=== PATIENT | female | born 1970 | race Caucasian/White ===

== ENCOUNTER 2020-05-23 10:47 | Emergency (ER) | payer MEDICARE, OTHER ==
[~2020-05-23 10:47] MED LIST: BENTYL 20MG TAB20 MG PO; BRIVIACT50 MG PO; BUSPAR 10MG10 MG PO; CYCLOBENZAPRINE10 MG PO; FAMOTIDINE40 MG PO; K-DUR TAB 20 M20 MEQ PO; KEFLEX CAP 500500 MG PO; MACROBID 100 M100 MG PO; PROMETHAZINE12.5 M1 PO; VENLAFAXINE HC225 MG PO; ZOFRAN ODT 4 MG4 MG PO
[2020-05-23 12:19] LABS: HEMOGLOBIN 12.5 gm/dl (12.3-15.3); RED BLOOD COUNT 4.49 M/UL (4.00-5.10); WHITE BLOOD COUNT 11.7 K/UL (4.5-11.0)
[2020-05-23 12:40] LABS: BUN/CREATININE RATIO 18 (0-10)
[2020-05-23] MEDS ORDERED: BENTYL 20MG TAB20 MG PO (17:05)
[2020-05-23] MEDS ORDERED: PROTONIX40 MG PO (17:05)
[2020-05-23] MEDS ORDERED: ZOFRAN ODT 4 MG4 MG PO (17:05)
[2020-05-23] MEDS ORDERED: XYLOCAINE VISC100 ML PO (17:05)
== END 2020-05-23 17:19 | disposition home or self-care (01) ==
LOC: ER1 10:47
PROVIDERS: Emergency Medicine
DX: R10.13 Epigastric pain (principal); R11.0 Nausea
CPT/HCPCS: 80053; 81001; 83690; 84703; 85025; 87081; 87880; 96365; 96375; 99284; J2405; J7030; Q9967

== ENCOUNTER 2020-07-17 10:02 | Emergency (ER) | payer MEDICARE ==
[~2020-07-17 10:02] MED LIST changes: +PROTONIX40 MG PO; +XYLOCAINE VISC100 ML PO
[2020-07-17 10:58] LABS: HEMOGLOBIN 12.4 gm/dl (12.3-15.3); RED BLOOD COUNT 4.38 M/UL (4.00-5.10); WHITE BLOOD COUNT 11.2 K/UL (4.5-11.0)
[2020-07-17 11:24] LABS: BUN/CREATININE RATIO 16 (0-10)
== END 2020-07-17 13:36 | disposition home or self-care (01) ==
LOC: ER1 10:02
PROVIDERS: Physician Assistant
DX: R10.9 Unspecified abdominal pain (principal); E87.6 Hypokalemia; Z90.710 Acquired absence of both cervix and uterus
CPT/HCPCS: 80053; 81001; 83690; 84703; 85025; 96374; 96375; 99284; J2270; J2405; J7030; Q9967

== ENCOUNTER 2020-09-02 20:23 | Emergency (ER) | payer MEDICARE ==
[2020-09-03 00:58] LABS: HEMOGLOBIN 11.8 gm/dl (12.3-15.3); RED BLOOD COUNT 4.09 M/UL (4.00-5.10); WHITE BLOOD COUNT 10.6 K/UL (4.5-11.0)
[2020-09-03 01:15] LABS: BUN/CREATININE RATIO 19 (0-10)
== END 2020-09-03 02:30 | disposition home or self-care (01) ==
LOC: ER1 20:23
PROVIDERS: Family Medicine
DX: R06.00 Dyspnea, unspecified (principal); R53.1 Weakness; Z86.16 Personal history of COVID-19; Z90.710 Acquired absence of both cervix and uterus
CPT/HCPCS: 71045; 80053; 82550; 82553; 83874; 83880; 84484; 85025; 93005; 99285

== ENCOUNTER → 2020-12-09 | Outpatient (CLI) | payer MEDICARE, OTHER | LOC: KOH-I 11:34 | DX: M50.323 Other cervical disc degeneration at C6-C7 level (principal); M47.812 Spondylosis without myelopathy or radiculopathy, cervical region; Z98.890 Other specified postprocedural states | CPT/HCPCS: 72050 ==